=== PATIENT | male | born 1960 | race Caucasian/White ===

== ENCOUNTER 2021-11-25 09:44 | Outpatient (CLI) | payer BC, SELFPAY ==
[2021-11-25 09:57] VITALS: BP 177/98; PULSE 59; RESP 18; TEMP 36.6; O2SAT 95
[2021-11-25 10:00] VITALS: BMI 34.9
[2021-11-25 10:33] VITALS: BP 145/86; PULSE 57; RESP 17; TEMP 36.4; O2SAT 94
[2021-11-25 11:31] VITALS: BP 161/93; PULSE 52; RESP 18; TEMP 36.4; O2SAT 94
== END 2021-11-25 09:45 | disposition home or self-care (01) ==
LOC: OPS 09:50
PROVIDERS: PCP Nurse Practitioner; Visit Provider Nurse Practitioner
DX: U07.1 COVID-19 (principal); J45.909 Unspecified asthma, uncomplicated; I10 Essential (primary) hypertension
CPT/HCPCS: 96365